=== PATIENT | female | born 1965 | race Caucasian/White ===

== ENCOUNTER 2019-11-04 10:13 | Inpatient (IN) | payer OTHER, SELFPAY ==
[2019-11-04] VITALS (8 sets, daily range): BP systolic 151–188; BP diastolic 72–114; PULSE 80–92; RESP 16–24; TEMP 36.6–37; O2SAT 92–97
--- NOTE | ~2019-11-04 | XR_ITS ---
XR abdomen NG/feed tube insert DATE: 11/04/2019 13:23 INDICATION: Nasogastric tube placement. Small bowel obstruction. TECHNIQUE: Portable supine AP view on 11/14/2019 at 1323 hours COMPARISON: None FINDINGS: A nasogastric tube is present in the upper body of the stomach. Surgical clips, right upper quadrant. Dilated gas distended small bowel. IMPRESSION: NG tube in stomach Reviewed, dictated and finalized at Location [facility]. Reviewed, dictated and finalized at location A. T OPERATIONS ASSISTANT IMPRESSION: NG tube in stomach
--- NOTE | ~2019-11-04 | CT_ITS ---
EXAMINATION: CT abdomen pelvis w con DATE: 11/04/2019 12:34 INDICATION: Abdominal pain, nausea, vomiting. TECHNIQUE: Computed tomography (CT) of the abdomen and pelvis was performed with 100 cc Omnipaque 350 intravenous contrast. Automated exposure control and iterative reconstruction technique were employe d. Exam dose: 1494.92 mGy-cm total exam DLP. COMPARISON: 06/21/2019 CT abdomen pelvis FINDINGS: The lung bases are clear. No pericardial or pleural effusion. Status post cholecystectomy. No hepatic or pancreatic space occupying mass lesion. Splenic calcifie d granulomas. No bile duct or pancreatic duct dilatation. No adrenal or renal space-occupying mass lesion. No urinary tract calculus or hydroureteronephrosis. Normal caliber of the abdominal aorta. No intraperitoneal or retroperitoneal or pelvic mass lesion or adenopathy or ascites. The urinary bladder, uterus and adnexal areas are unremarkable. There is dilated small bowel measuring up to 4.7 cm caliber, with air-fluid levels, with transition p oint near the neck of a ventral abdominal wall hernia. The distal small bowel is decompressed. There are numerous diverticula of the sigmoid and descending and transverse colon; no CT evidence of diverticulitis. Diffuse idiopathic skeletal hyperostosis of the thoracic and upper lumbar spine. Prominent degenerati ve change at the apophyseal joints of the lower lumbar and lumbosacral area. No suspicious osteolytic or osteoblastic lesions are noted. IMPRESSION: Small bowel obstruction near neck of the lower ventral abdominal wall hernia Diverticulosis of the colon Status post cholecystectomy Reviewed, dictated and finalized at [facility]. Reviewed, dictated and finalized at location A. DE UPHOLSTERER IMPRESSION: Small bowel obstruction near neck of the lower ventral abdominal w all hernia Diverticulosis of the colon Status post cholecystectomy
[2019-11-04 10:34] LABS: Basophils Percent Auto 0.2 % (0.2-1.2); Eosinophils Percent Auto 0.2 % (0-4.4); Hematocrit 51.4 % (37.0-47.0); Hemoglobin 16.3 g/dL (12.0-15.0); Immature Granulocyte Absolute 0.04 K/mm3 (0.00-0.031); Immature Granulocyte Percent A 0.3 % (0-0.5); Lymphocytes Absolute Auto 1.26 K/mm3 (0.9-3.2); Lymphocytes Percent Auto 10.2 % (18.3-44.2); Mean Corpuscular HGB Conc 31.7 g/dl (32-36); Mean Corpuscular Hemoglobin 27.3 pg (26-34); Mean Corpuscular Volume 86.2 fl (80-100); Mean Platelet Volume 10.1 fl (7.4-10.4); Monocytes Absolute Auto 0.9 K/mm3 (0.1-0.6); Neutrophils Absolute Auto 10.2 K/mm3 (1.3-6.7); Neutrophils Percent Auto 82.1 % (45.5-73.1); Platelet Count Result 329 k/mm3 (150-375); Red Blood Count 5.96 M/mm3 (4.2-5.4); Red Cell Distribution Width 14.6 % (11.5-14.5); White Blood Count 12.4 K/mm3 (4.5-10.0)
--- NOTE | 2019-11-04 10:34 | ED.ABDPAIN ---
HPI - Abdominal Pain General Chief Complaint: Abdominal Pain Stated Complaint: R/O SBO Time Seen by Provider: 11/04/19 10:34 Source: patient Mode of arrival: ambulatory Limitations: no limitations History of Present Illness HPI narrative: A 54 y/o female presents to the ED with c/o possible bowel obstruction and diffuse ABD pain. Pt states that on 11/02/19 she had a BM at 1230 and started to vomit after she at dinner. On 11/03/19 she started to have ABD pain, ABD bloating, and dry heaves. Pt notes that she has a PMHx of bowel obstruction, so she tried taking castor oil with no relief. She adds that her last BM was on 11/02/19 and this feels similar to her past bowel obstruction. Pt is belching, but passing little gas. She reports night sweats, but denies fever, chills, sore throat, rhinorrhea, and congestion. The ABD pain is rated a 7/10 in the ED. She has a PMHx of section, oophorectomy, diverticulosis, asthma, and bowel surgery. Her PCP is Dr. Ann and she is a former smoker. She socially drinks alcohol and takes Lasix PRN. MD elicited complaint: abdominal pain (Diffuse) and other (Possible bowel obstruction) Pertinent past history: other (Bowel obstruction, diverticulosis) Onset (ago): day(s) (2) Pain Consistency: constant Location: diffuse Pain scale (0-10): 7 Relieving factors: nothing Associated symptoms: nausea, vomiting and other (ABD bloating, dry heaves, night sweats) Treatments prior to arrival: other ([place] oil) Related Data Home Medications Medication Instructions Recorded Confirmed furosemide 20 mg PO PRN PRN 11/04/19 Allergies Allergy/AdvReac Type Severity Reaction Status Date / Time Penicillins Allergy Mild Itching Verified 08/05/17 09:34 amoxicillin Allergy Unknown Itching Verified 11/04/19 11:07 Review of Systems Review of Systems: All systems reviewed & are unremarkable except as noted in HPI and below Constitutional: Constitutional: Denies chills, Denies fever(s) and Reports night sweats ENT: Denies nasal congestion, Denies nasal discharge and Denies sore throat Gastrointestinal: Gastrointestinal: Reports abdominal pain (Diffuse), Reports bloating, Reports nausea, Reports vomiting and Reports other (Dry heaves) [facility] Past Medical History Medical History (Updated 11/04/19 @ 17:10 by Yvonne Rodriguez MD) Asthma Bowel obstruction Diverticulosis Surgical History Surgical History (Updated 11/04/19 @ 11:48 by Josefina Charlton) History of section History of intestinal surgery History of oophorectomy Family History Family History Grandparent Hypertension Family history of lung cancer Family history of coronary artery disease Diabetes mellitus Father Family history of lung cancer Other Family history of alcoholism Family history of arthritis Family history of cardiovascular disease Family history of malignant neoplasm Social History Social History (Updated 11/04/19 @ 11:45 by Josefina Charlton) Smoking status: Former smoker Tobacco type: cigarettes Smoking end date: 09/26/89 Alcohol intake: current Drinks per week: 2 Alcohol use details: Occasional Substance use: never Gender identity (if verbalized by the patient): Female Spiritual care concerns: No Agree to blood products: Yes Exam Const: General: cooperative, no acute distress and alert Nutritional Appearance: obese morbidly obese Orientation/consciousness: patient oriented x3 Limitations: no limitations HENMT: Mouth: Yes lip normal and Yes moist mucous membranes Resp: Effort & Inspection: normal respiratory effort Auscultation: clear to auscultation bilaterally Cardio: Rate: regular rate Rhythm: regular rhythm GI: Inspection: distended, Pannus present and scar GI Palp: Yes Soft to palpation, Yes Tenderness to palpation present (GI) (Diffuse), No Guarding due to palpation present (GI), Yes Hernia present (Multiple large ventr
[2019-11-04] MEDS: ONDANSETRON INJ 4 MG/2 ML VIAL IV PUSH ×2 (11:09→21:13)
[2019-11-04] MEDS: LACTATED RINGERS 1,000 ML 999 ML IV CONT (11:10)
[2019-11-04] MEDS: DICYCLOMINE HCL INJ 20 MG/2 ML VIAL IM (11:10)
[2019-11-04 11:36] LABS: Add Urine Microscopic? YES; Appearance Urine Cloudy (Clear); Bacteria Urine Trace /hpf; Bilirubin Urine Negative (Negative); Blood Urine 1+ (Negative); Color Urine Amber (Yellow); Glucose Urine UA Negative (Negative); Ketones Urine Trace mg/dL (Negative); Leukocyte Esterase Ur Negative LEU/UL (Negative); Mucus Urine Heavy /lpf; Nitrate Urine Negative (Negative); Protein Urine 2+ mg/dL (Negative); Squamous Epithelial Cell Urine Many /hpf (Few)
[2019-11-04 11:37] LABS: Specific Grav Ur 1.032 (1.001-1.035)
[2019-11-04 11:39] LABS: Alanine Aminotransferase 26 U/L (4-35); Albumin Level 4.3 g/dL (3.5-5.1); Alkaline Phosphatase 111 U/L (38-126); Aspartate Amino Transferase 35 U/L (14-36); Bilirubin,Total 0.8 mg/dL (0.2-1.3); Blood Urea Nitrogen 14 mg/dL (7-17); Calcium 9.5 mg/dL (8.4-10.2); Carbon Dioxide 28 mmol/L (22-30); Chloride 94 mmol/L (98-107); Estimated CRCL calculation 124 ml/min; Estimated Glomerular Filt Rate > 60; Glucose 143 mg/dL (65-105); Lipase 32 U/L (23-300); Potassium 4.2 mmol/L (3.4-5.0); Sodium 135 mmol/L (137-145)
[2019-11-04] MEDS: LACTATED RINGERS 1,000 ML 150 ML IV CONT (16:27)
[2019-11-04] MEDS: MORPHINE SULFATE 4 MG/ML INJ IV PUSH (16:27)
--- NOTE | 2019-11-04 16:35 | PC.NURSE ---
This patient, Mary Caldwell, was admitted to 3 [facility] Surg Room 319-01. Patient/family oriented to hospital policies and general routines including ID bracelet, bed and alarms, visiting hours, pain management, procedures, bathroom and other care routines, personal items, smoking policy, room service/diet, and visiting hours. Valuables list has been completed. Information on how to activate the Rapid Response Team has been discussed. Patient/Family are encouraged to report perceived risks to care and to ask questions if they do not understand what they are told or what they should do.
[2019-11-04] MEDS: FAMOTIDINE 20 MG/2 ML VIAL IV PUSH (21:02)
[2019-11-05] MEDS: hydrALAZINE HCL 20 MG/ML VIAL 10 MG IV PUSH ×2 (00:15→14:29)
[2019-11-05] MEDS: LACTATED RINGERS 1,000 ML 150 ML IV CONT ×4 (00:16→22:10)
[2019-11-05 03:26] VITALS: BP 165/89; PULSE 88
[2019-11-05 06:00] VITALS: BP 154/78; PULSE 92; RESP 20; TEMP 36.9; O2SAT 93
[2019-11-05] MEDS: ONDANSETRON INJ 4 MG/2 ML VIAL IV PUSH (08:15)
--- NOTE | 2019-11-05 09:15 | PM.IMHP ---
H&P: HPI History of Present Illness Chief complaint: SBO Narrative: Mary Caldwell is a morbidly obese 54 year old female with a history of multiple abdominal surgeries, including 3 incisional hernia repairs in the past, and also with a history of bowel obstructions in the past. She initially started having symptoms 3 days ago after eating pizza. She reports having an episode of vomiting following her meal, but attributed this to the ?stomach flu.? The vomiting persisted into Tuesday, but her abdominal pain began to worsen. She states that the pain was a generalized abdominal pain radiating across the entire abdomen. The pain continued to worsen into yesterday and she realized she had not had a bowel movement since 3 days ago, therefore she was concerned and decided to present to the ED for further evaluation. CT scan of the abdomen and pelvis showed a small bowel obstruction near the neck of the lower ventral abdominal wall hernia. Labs revealed a white blood cell count of 12,400 otherwise unremarkable labs. Our service was contacted for the small-bowel obstruction and the patient was admitted to our service for treatment and surgical evaluation. The patient is now being seen on the medical floor. She reports that her pain has improved since the NG tube has been placed and is now localizing towards the mid left abdomen, pointing at the hernia. She states that her nausea has been persistent even with the NG tube. Reports passing gas today but still no bowel movement since 3 days ago. No other complaints at this time. She was last seen in the hospital in May of 2019 for the same issue with a small-bowel obstruction due to the ventral incisional hernia that resolved with conservative management and NG tube decompression. She was discharged home and instructed to work on weight loss prior to proceeding with a recurrence ventral incisional hernia repair. The patient reports having a lot of stress at home without any weight loss since discharge in May. Review of Systems Constitutional: Constitutional: Reports as per HPI, Denies chills, Denies excessive sweating, Denies fatigue, Denies fever(s), Denies headache(s) and Denies weakness Eyes: Eyes: Denies change in vision and Denies loss of vision ENT: Reports Normal hearing present, Denies dizziness and Denies headache(s) Cardiovascular: Cardiovascular: Denies chest pain, Denies syncope, Denies leg edema, Denies lightheadedness, Denies radiating jaw, neck or arm pain and Denies dyspnea Respiratory: Respiratory: Denies cough, Denies dyspnea and Denies wheezing Gastrointestinal: Gastrointestinal: Reports as per HPI, Reports abdominal pain (generalized), Reports bloating, Denies coffee ground emesis, Reports constipation, Denies diarrhea, Reports nausea, Reports vomiting and Reports other (History of multiple abdominal surgeries) Musculoskeletal: Musculoskeletal: Denies deformity, Denies joint swelling, Denies radiating pain into limb and Denies tingling Integumentary/Breasts: Skin/Breast: Denies pruritus, Denies wounds and Denies jaundice Neurologic: Reports Normal hearing present, Denies confusion, Denies dizziness, Denies syncope, Denies headache(s), Denies loss of vision, Denies tingling and Denies tremor(s) Psychiatric: Psychiatric: Denies anxiety and Denies depression Endocrine: Endocrine: Denies cold intolerance, Denies excessive sweating and Denies heat intolerance PMFSH Past Medical History Medical History Asthma Bowel obstruction Diverticulosis With a history of diverticulitis and colon resection. Surgical History Surgical History History of appendectomy Open appendectomy during her first . History of arthroscopy of left knee History of section x 2 History of colon resection Sigmoidectomy for diverticulitis with left oophorectomy in 2007.
[2019-11-05] MEDS: FAMOTIDINE 20 MG/2 ML VIAL IV PUSH ×2 (12:19→20:30)
[2019-11-05 14:00] VITALS: BP 189/120; PULSE 98; RESP 16; TEMP 36.7; O2SAT 96
[2019-11-05] MEDS: MORPHINE SULFATE 4 MG/ML INJ IV PUSH (14:49)
[2019-11-05 16:49] VITALS: BMI 50.5
[2019-11-05 22:00] VITALS: BP 146/79; PULSE 100; RESP 18; TEMP 37.8; O2SAT 93
[2019-11-05 22:25] VITALS: TEMP 37.2
[2019-11-06 06:00] VITALS: BP 136/71; PULSE 91; RESP 20; TEMP 37; O2SAT 96
[2019-11-06 06:34] LABS: Hematocrit 45.9 % (37.0-47.0); Hemoglobin 14.4 g/dL (12.0-15.0); Mean Corpuscular HGB Conc 31.4 g/dl (32-36); Mean Corpuscular Hemoglobin 27.7 pg (26-34); Mean Corpuscular Volume 88.3 fl (80-100); Mean Platelet Volume 10.3 fl (7.4-10.4); Platelet Count Result 255 k/mm3 (150-375); White Blood Count 12.2 K/mm3 (4.5-10.0)
[2019-11-06 06:48] LABS: Blood Urea Nitrogen 17 mg/dL (7-17); Calcium 8.5 mg/dL (8.4-10.2); Carbon Dioxide 32 mmol/L (22-30); Chloride 92 mmol/L (98-107); Estimated CRCL calculation 105 ml/min; Estimated Glomerular Filt Rate > 60; Glucose 111 mg/dL (65-105); Potassium 3.7 mmol/L (3.4-5.0); Sodium 136 mmol/L (137-145)
--- NOTE | 2019-11-06 08:48 | PM.PNGS ---
Progress Note: A&P Assessment and Plan (1) SBO (small bowel obstruction): Code(s): K56.609 - Unspecified intestinal obstruction, unspecified as to partial versus complete obstruction Status: Resolved Assessment and Plan: Remove NG and start clear liquids Bowel obstruction likely caused by hernia and adhesions, but she is too high of a surgical risk at this time. She needs to work on weight loss. Once BMI is below 45, could consider surgical options further (2) Recurrent ventral incisional hernia: Code(s): K43.2 - Incisional hernia without obstruction or gangrene Status: Chronic (3) Morbid obesity with BMI of 50.0-59.9, adult: Code(s): E66.01 - Morbid (severe) obesity due to excess calories; Z68.43 - Body mass index (BMI) 50.0-59.9, adult Status: Chronic Subjective Subjective Date/Time Seen: 11/06/19 08:48 Multiple BM's. No abdominal pain. Exam GI: GI Palp: No Tenderness to palpation present (GI), No Guarding due to palpation present (GI) and Yes Hernia present (large recurrent hernia, soft bowel palpable within hernia) Objective Data Vital Signs Vital Signs: Vital Signs - 24 hr 11/05/19 14:00 11/05/19 22:00 11/05/19 22:25 Temperature 36.7 C 37.8 C H 37.2 C Pulse Rate 98 100 Respiratory Rate 16 18 Blood Pressure 189/120 H 146/79 H Pulse Oximetry 96 93 11/06/19 06:00 Temperature 37.0 C Pulse Rate 91 Respiratory Rate 20 Blood Pressure 136/71 Pulse Oximetry 96 Intake/Output Intake/Output: Intake & Output 11/03/19 11/04/19 11/05/19 11/06/19 23:59 23:59 23:59 23:59 Intake Total 2200 3200 1000 Output Total 1550 2250 950 Balance 650 950 50 Meds/Results Medications: Active Medications Generic Name Dose Route Start Last Admin Trade Name Freq PRN Reason Stop Dose Admin Dicyclomine HCl 20 mg 11/04/19 14:01 Bentyl Inj IM Q6H PRN Abdominal Cramping Famotidine 20 mg 11/04/19 21:00 11/05/19 20:30 Pepcid Iv IV PUSH 20 mg Q12HR KRYSTAL Administration Hydralazine HCl 10 mg 11/04/19 23:29 11/05/19 14:29 Apresoline Hcl Inj IV PUSH 10 mg Q8H PRN Administration Blood Pressure - High Lactated Ringer's 1,000 mls @ 150 mls/hr 11/04/19 14:05 11/06/19 05:52 Lr - Lactated Ringers Iv IV CONT 150 mls/hr .Q6H40M KRYSTAL Infusion Acetaminophen 1,000 mg in 100 mls @ 400 mls/hr 11/05/19 15:02 11/05/19 22:25 Ofirmev 1,000 Mg Ivpb IVPB 11/06/19 15:03 Infused Q6H PRN Infusion Pain Rated 4-6 Morphine Sulfate 4 mg 11/05/19 15:03 Morphine Sulfate Inj IV PUSH Q2H PRN Pain Rated 7-10 Ondansetron HCl 4 mg 11/04/19 14:01 11/05/19 08:15 Zofran Inj IV PUSH 4 mg Q4H PRN Administration Nausea Radiology Results: ITS Impressions Abdomen/Pelvis CT 11/04/19 12:39 IMPRESSION: Small bowel obstruction near neck of the lower ventral abdominal wall hernia Diverticulosis of the colon Status post cholecystectomy Abdomen X-Ray 11/04/19 13:46 IMPRESSION: NG tube in stomach Labs Labs: Laboratory Results - last 24 hr 11/06/19 11/06/19 06:12 06:12 WBC 12.2 H RBC 5.20 Hgb 14.4 Hct 45.9 MCV 88.3 MCH 27.7 MCHC 31.4 L RDW 15.0 H Plt Count 255 MPV 10.3 Sodium 136 L Potassium 3.7 Chloride 92 L Carbon Dioxide 32 H BUN 17 Creatinine 0.70 Estim Creat Clear Calc 105 Estimated GFR > 60 Glucose 111 H Calcium 8.5 Quality VTE Prophylaxis VTE prophylaxis: mechanical ordered
[2019-11-06 14:00] VITALS: BP 139/73; PULSE 83; RESP 16; TEMP 37.6; O2SAT 96
[2019-11-06] MEDS: FAMOTIDINE 20 MG/2 ML VIAL IV PUSH (21:05)
[2019-11-06] MEDS: LACTATED RINGERS 1,000 ML 75 ML IV CONT (21:05)
[2019-11-06 22:00] VITALS: BP 130/68; PULSE 75; RESP 18; TEMP 36.9; O2SAT 97
[2019-11-07 06:00] VITALS: BP 125/68; PULSE 85; RESP 18; TEMP 36.4; O2SAT 98
[2019-11-07 06:31] LABS: Hematocrit 43.8 % (37.0-47.0); Hemoglobin 13.3 g/dL (12.0-15.0); Mean Corpuscular HGB Conc 30.4 g/dl (32-36); Mean Corpuscular Hemoglobin 27.7 pg (26-34); Mean Corpuscular Volume 91.3 fl (80-100); Mean Platelet Volume 10.8 fl (7.4-10.4); Platelet Count Result 231 k/mm3 (150-375); White Blood Count 10.2 K/mm3 (4.5-10.0)
[2019-11-07 06:47] LABS: Blood Urea Nitrogen 12 mg/dL (7-17); Calcium 8.5 mg/dL (8.4-10.2); Carbon Dioxide 32 mmol/L (22-30); Chloride 93 mmol/L (98-107); Estimated CRCL calculation 121 ml/min; Estimated Glomerular Filt Rate > 60; Glucose 102 mg/dL (65-105); Potassium 3.1 mmol/L (3.4-5.0); Sodium 137 mmol/L (137-145)
[2019-11-07] MEDS: polyethylene glycoL 3350 17 GM POWD.PACK PO (09:03)
[2019-11-07] MEDS: FAMOTIDINE 20 MG/2 ML VIAL IV PUSH (09:03)
[2019-11-07] MEDS: POTASSIUM CHLORIDE 20 MEQ TABLET 40 MEQ PO (09:06)
--- NOTE | 2019-11-07 10:11 | PM.PNGS ---
Progress Note: A&P Assessment and Plan (1) SBO (small bowel obstruction): Code(s): K56.609 - Unspecified intestinal obstruction, unspecified as to partial versus complete obstruction Status: Resolved Assessment and Plan: Patient continues to improve. Will advance to full liquids and advance diet as tolerated Bowel obstruction likely caused by hernia and adhesions, but she is too high of a surgical risk at this time. She needs to work on weight loss. Discussed again today with the patient and also seeing a Dietitian for help with this. Once BMI is below 45, could consider surgical options further (2) Recurrent ventral incisional hernia: Code(s): K43.2 - Incisional hernia without obstruction or gangrene Status: Chronic (3) Morbid obesity with BMI of 50.0-59.9, adult: Code(s): E66.01 - Morbid (severe) obesity due to excess calories; Z68.43 - Body mass index (BMI) 50.0-59.9, adult Status: Chronic Subjective Subjective Date/Time Seen: 11/07/19 08:32 Patient reports: no new complaints, feels better, pain is less, tolerating liquids well, flatus and bowel movement Interval history: Patient seen and examined. Reports feeling better today. Denies nausea, vomiting, or bloating. Tolerating clear liquids. Bowels have moved multiple times yesterday and already twice this morning. Denies abdominal pain. No other complaints at this time. Review of Systems Review of Systems: All systems reviewed & are unremarkable except as noted in HPI and below Exam Const: General: comfortable, no acute distress, alert and awake Nutritional Appearance: obese morbidly obese GI: Inspection: obesity GI Palp: Yes Soft to palpation and No Tenderness to palpation present (GI) Auscultation: Hypoactive bowel sounds present Rectal Exam: deferred Other: Large recurrent ventral hernia with soft palpable bowel but unable to appreciate if able to fully reduce the hernia due to the patient's body habitus and size of the hernia. Extrem: General: normal to inspection Psych: Appearance: grossly normal Mental Status: mental status grossly normal Attitude: cooperative Objective Data Vital Signs Vital Signs: Vital Signs - 24 hr 11/06/19 14:00 11/06/19 22:00 11/07/19 06:00 Temperature 37.6 C H 36.9 C 36.4 C Pulse Rate 83 75 85 Respiratory Rate 16 18 18 Blood Pressure 139/73 130/68 125/68 Pulse Oximetry 96 97 98 Intake/Output Intake/Output: Intake & Output 11/04/19 11/05/19 11/06/19 11/07/19 23:59 23:59 23:59 23:59 Intake Total 2200 3200 2680 444 Output Total 1550 2250 1750 550 Balance 650 950 930 -106 Meds/Results Medications: Active Medications Generic Name Dose Route Start Last Admin Trade Name Freq PRN Reason Stop Dose Admin Dicyclomine HCl 20 mg 11/04/19 14:01 Bentyl Inj IM Q6H PRN Abdominal Cramping Famotidine 20 mg 11/04/19 21:00 11/07/19 09:03 Pepcid Iv IV PUSH 20 mg Q12HR KRYSTAL Administration Hydralazine HCl 10 mg 11/04/19 23:29 11/05/19 14:29 Apresoline Hcl Inj IV PUSH 10 mg Q8H PRN Administration Blood Pressure - High Lactated Ringer's 1,000 mls @ 75 mls/hr 11/04/19 14:05 11/07/19 06:37 Lr - Lactated Ringers Iv IV CONT 75 mls/hr .[id number] KRYSTAL Infusion Morphine Sulfate 4 mg 11/05/19 15:03 Morphine Sulfate Inj IV PUSH Q2H PRN Pain Rated 7-10 Ondansetron HCl 4 mg 11/04/19 14:01 11/05/19 08:15 Zofran Inj IV PUSH 4 mg Q4H PRN Administration Nausea Polyethylene Glycol 17 gm 11/07/19 09:00 11/07/19 09:03 Miralax PO 17 gm QAM KRYSTAL Administration Radiology Results: ITS Impressions Abdomen/Pelvis CT 11/04/19 12:39 IMPRESSION: Small bowel obstruction near neck of the lower ventral abdominal wall hernia Diverticulosis of the colon Status post cholecystectomy Abdomen X-Ray 11/04/19 13:46 IMPRESSION: NG tube in stomach Labs Labs: Laboratory Results - last
--- NOTE | 2019-11-07 15:57 | PM.DS ---
DS: Diagnosis Admitting Diagnosis Admitting Diagnosis: Unspecified intestinal obstruction, unspecified as to partial versus complete obstruction Discharge Diagnosis (1) SBO (small bowel obstruction): Code(s): K56.609 - Unspecified intestinal obstruction, unspecified as to partial versus complete obstruction Status: Resolved (2) Recurrent ventral incisional hernia: Code(s): K43.2 - Incisional hernia without obstruction or gangrene Status: Chronic (3) Morbid obesity with BMI of 50.0-59.9, adult: Code(s): E66.01 - Morbid (severe) obesity due to excess calories; Z68.43 - Body mass index (BMI) 50.0-59.9, adult Status: Chronic DS: Summary Hospital Course Reason for hospitalization: Mary Caldwell is a morbidly obese 54 year old female with a history of multiple abdominal surgeries, including 3 incisional hernia repairs in the past, and also with a history of bowel obstructions in the past. She had been having symptoms for 3 days of abdominal pain, nausea, and vomiting. She presented to the emergency department for evaluation. CT scan of the abdomen and pelvis showed a small bowel obstruction near the neck of the lower ventral abdominal wall hernia. Labs revealed a white blood cell count of 12,400 otherwise unremarkable labs. Our service was contacted for the small-bowel obstruction and the patient was admitted to our service for treatment and surgical evaluation. Hospital Course: The patient was seen and evaluated. The small bowel obstruction was treated conservatively with NG tube decompression, bowel rest, IV fluids, analgesics, and antiemetics. With time, the bowel obstruction resolved and her bowel function returned. She does have a large recurrent ventral hernia containing small bowel. Her BMI is over 50 and she has been instructed in the past to work on weight loss prior to having an elective hernia repair. She has not made progress with the weight loss. Fortunately, this resolved with conservative measures again this time but we discussed the possibility of this being a more emergent situation with an incarcerated or strangulated hernia. She understands and states she will work on weight loss and get a dietitian referral from her PCP. Once bowel function returned and she clinically improved, her NG tube was removed and she was slowly advanced on a diet. Today, she has had a full liquid diet and is tolerating this well. I have seen her now for the second time today. She states her bowels are still moving and she has no abdominal complaints. When she initially arrived to the ED, her BP was high but this improved after her pain was controlled and subsided. This was likely due to pain but she was instructed to follow-up with her PCP and will have a blood pressure recheck then. I advanced her to a soft diet for dinner and if she tolerates this without any complaints, then she can be discharged this evening. I discussed this with the patient and the nurse taking care of her. I also instructed the patient to continue the Miralax daily at home to help keep her bowels moving regularly. Status at Discharge Functional status at discharge: independent ambulation Overall status at discharge: patient is back to baseline Time Spent with Patient Time attestation: Total time spent providing and/or coordinating discharge services: Time spent: Greater than 30 minutes DS: Data Data Completed and Pending Labs on day of discharge: Labs from last 24 hours 11/07/19 11/07/19 06:06 06:06 WBC 10.2 H RBC 4.80 Hgb 13.3 Hct 43.8 MCV 91.3 MCH 27.7 MCHC 30.4 L RDW 15.0 H Plt Count 231 MPV 10.8 H Sodium 137 Potassium 3.1 L Chloride 93 L Carbon Dioxide 32 H BUN 12 D Creatinine 0.60 L Estim Creat Clear Calc 121 Estimated GFR > 60 Glucose 102 Calcium 8.5 Discharge Plan Discharge Attending physician on discharge: Gomez Nelson Consulting providers: Roman Hernandez
== END 2019-11-07 18:45 | disposition home or self-care (01) | DRG 394 ==
LOC: ANHED 14:06 → ANH3MEDSUR 14:20
PROVIDERS: Admitting Provider Surgery; Emergency Provider Emergency Medicine; PCP Family Medicine; Visit Provider Surgery
DX: K43.0 Incisional hernia with obstruction, without gangrene (principal); Z68.43 Body mass index [BMI] 50.0-59.9, adult; E66.01 Morbid (severe) obesity due to excess calories; J45.909 Unspecified asthma, uncomplicated; K57.90 Diverticulosis of intestine, part unspecified, without perforation or abscess without bleeding; R03.0 Elevated blood-pressure reading, without diagnosis of hypertension; Z87.891 Personal history of nicotine dependence; Z90.49 Acquired absence of other specified parts of digestive tract
CPT/HCPCS: 36415; 74177; 80048; 80053; 81001; 83690; 85025; 85027; 87077; 87086; 87088; 87186; 96365; 96372; 96375; 99285; A9270; J0131; J0360; J0500; J2270; J2405; J7120; Q9967

== ENCOUNTER 2020-10-10 08:57 | Outpatient (CLI) | payer OTHER, SELFPAY ==
--- NOTE | ~2020-10-10 | XR_ITS ---
EXAMINATION: XR chest 2V DATE: 10/10/2020 09:11 INDICATION: Cough and shortness of breath TECHNIQUE: Frontal and lateral views of the chest are obtained COMPARISON: 01/09/2007 FINDINGS: There are patchy opacities throughout all lung zones. There is no pleural effusion or pneum othorax. The cardiomediastinal silhouette is normal. There is moderate thoracic spondylosis. Thoracic dextrocurvature is noted. IMPRESSION: 1. Patchy bilateral opacities, likely pneumonia. Reviewed, dictated and finalized at location A. LFURIZER TENDER
[2020-10-10 09:27] LABS: Basophils Absolute Auto 0.1 K/mm3 (0.0-0.1); Basophils Percent Auto 0.6 % (0.2-1.2); Eosinophils Absolute Auto 0.2 K/mm3 (0-0.3); Eosinophils Percent Auto 1.5 % (0-4.4); Hematocrit 45.1 % (37.0-47.0); Immature Granulocyte Absolute 0.14 K/mm3 (0.00-0.031); Immature Granulocyte Percent A 1.3 % (0-0.5); Lymphocytes Percent Auto 25.8 % (18.3-44.2); Mean Corpuscular Hemoglobin 27.1 pg (26-34); Mean Corpuscular Volume 87.2 fl (80-100); Mean Platelet Volume 8.9 fl (7.4-10.4); Monocytes Absolute Auto 0.9 K/mm3 (0.1-0.6); Monocytes Percent Auto 8.2 % (2.6-8.5); Neutrophils Absolute Auto 6.8 K/mm3 (1.3-6.7); Neutrophils Percent Auto 62.6 % (45.5-73.1); Platelet Count Result 487 k/mm3 (150-375); Red Blood Count 5.17 M/mm3 (4.2-5.4); Red Cell Distribution Width 16.2 % (11.5-14.5); White Blood Count 10.9 K/mm3 (4.5-10.0)
--- NOTE | 2020-10-10 09:30 | ECG_ITS ---
Measurements Intervals [place] Rate: 89 P: 75 [place]: 167 QRS: 48 QRSD: 88 T: 62 QT: 356 QTc: 435 Interpretive Statements SINUS RHYTHM POSSIBLE LEFT ATRIAL ENLARGEMENT BORDERLINE R WAVE PROGRESSION, ANTERIOR LEADS BASELINE ARTIFACT- I, II, III BORDERLINE ECG Electronically Signed On 10-10-2020 9:55:32 MITER CUTTER by Silverio Mcbride D.O.
[2020-10-10 09:38] LABS: Anion Gap 5 mmol/L (8-16); Blood Urea Nitrogen 14 mg/dL (7-17); Carbon Dioxide 30 mmol/L (22-30); Chloride 101 mmol/L (98-107); Estimated Glomerular Filt Rate > 60; Glucose 110 mg/dL (65-105); Potassium 4.5 mmol/L (3.4-5.0); Sodium 136 mmol/L (137-145)
[2020-10-10 09:47] LABS: NT Pro B Type Natriuretic Pept 138 PG/ML (5-100)
== END 2020-10-10 08:58 | disposition home or self-care (01) ==
LOC: ANHIMG 09:01
PROVIDERS: PCP Family Medicine; Visit Provider Nurse Practitioner Family
DX: R06.02 Shortness of breath (principal); R60.0 Localized edema; R05 Cough; R94.31 Abnormal electrocardiogram [ECG] [EKG]; R91.8 Other nonspecific abnormal finding of lung field
CPT/HCPCS: 36415; 71046; 80048; 83880; 85025; 93005

== ENCOUNTER 2022-03-04 06:40 | Outpatient (CLI) | payer OTHER, SELFPAY ==
--- NOTE | ~2022-03-04 | XR_ITS ---
XR chest 2V 03/04/2022 07:04 Indication: Cough. Long-term Covid effects. Shortness of breath. Procedure: PA and lateral views of the chest Comparison: Comparison to multiple prior studies sequentially, with oldest reviewed study dated 02/2007. Findings: Cardiomegaly with pulmonary vascular congestion. No focal pneumonia, overt edema, pleural e ffusion or pneumothorax. No acute osseous abnormality. There is diffuse idiopathic skeletal hyperosto sis (DISH) of the thoracic spine. There is dextroscoliosis of the thoracic spine. Impression: 1: No acute cardiopulmonary disease. Reviewed, dictated and finalized at location B. Impression: 1: No acute cardiopulmonary disease.
[2022-03-04 08:15] LABS: Anion Gap 7 mmol/L (8-16); Blood Urea Nitrogen 13 mg/dL (7-17); Calcium 8.8 mg/dL (8.4-10.2); Carbon Dioxide 27 mmol/L (22-30); Chloride 105 mmol/L (98-107); Estimated Glomerular Filt Rate > 60; Glucose 116 mg/dL (65-110); Potassium 4.6 mmol/L (3.4-5.0); Sodium 139 mmol/L (137-145)
== END 2022-03-04 06:41 | disposition home or self-care (01) ==
PROVIDERS: PCP Family Medicine; Visit Provider Family Medicine
DX: R05.9 Cough, unspecified (principal)
CPT/HCPCS: 36415; 71046; 80048

== ENCOUNTER 2022-03-26 08:22 | Outpatient (CLI) | payer OTHER, SELFPAY ==
--- NOTE | 2022-03-26 08:58 | ECHO_ITS ---
Patient Info Name: Mary Caldwell Age: 57 years : 1965 Gender: Female Ht: 62 in Wt: 315 lbs BSA: 2.60 m2 HR: 85 bpm BP: 149 / 93 mmHg Technical Quality: Fair Exam Date: 03/26/2022 9:12 AM Exam Location: [facility] Pulmonary Patient Status: Outpatient Admit Date: 03/26/2022 Staff Ordering Physician: Thomas Ann MD Inspector Fabric: Margaret Beebe RDCS Attending Provider: Thomas Ann MD Referring Physician: Marissa PERKINS; Exam Type: CA echo doppler color flow Study Info Indications R05 - Cough Complete two-dimensional, color flow and Doppler transthoracic echocardiogram is performed. Summary 1. Complete two-dimensional, color flow and Doppler transthoracic echocardiogram is performed. 2. Technically suboptimal study due to poor sonographic images. 3. Left ventricular chamber dimension is normal. 4. Left ventricular systolic function is normal, estimated at 55-60%. 5. There is moderately increased left ventricular wall thickness. 6. The left ventricular diastolic function is grade II diastolic dysfunction. 7. E/e' 11 is mildly elevated. Left Ventricle E/e' 11 is mildly elevated. Technically suboptimal study due to poor sonographic images. Left ventricular chamber dimension is normal. Left ventricular systolic function is normal, estimated at 55-60%. There is moderately increased left ventricular wall thickness. The left ventricular diastolic function is grade II diastolic dysfunction. Right Ventricle Right ventricular chamber dimension is normal. Right ventricular systolic function is normal. Left Atria Left atrial chamber dimension is normal. Right Atria Right atrial chamber dimension is normal. Aortic Valve The aortic valve is probable trileaflet. There is no aortic valve stenosis. There is no aortic valve regurgitation. Pulmonic Valve There is no pulmonic regurgitation. Mitral Valve There is no mitral valve stenosis. There is no mitral valve regurgitation. Tricuspid Valve There is no tricuspid valve regurgitation. Pericardium/Pleural There is no pericardial effusion. Inferior Vena Cava Normal inferior vena cava with >50% collapse upon inspiration consistent with normal right atrial pressure, 5 mmHg. Aorta The aortic root size at the sinus of Valsalva is normal. Left Ventricular Outflow Tract Name Value Normal LVOT 2D LVOT Diameter 1.9 cm LVOT Doppler LVOT Peak Gradient 5 mmHg LVOT Mean Gradient 3 mmHg LVOT VTI 23 cm LVOT VTI/AV VTI Ratio 1.0 LVOT Stroke Volume 65 ml LVOT CO 5.1 l/min LVOT CI 2.0 l/min/m2 Pulmonic Valve Name Value Normal RVOT Doppler RVOT Peak Gradient
== END 2022-03-26 08:23 | disposition home or self-care (01) ==
LOC: ANHCARD 08:23
PROVIDERS: PCP Family Medicine; Visit Provider Family Medicine
DX: U07.1 COVID-19 (principal); J12.82 Pneumonia due to coronavirus disease 2019; R06.02 Shortness of breath; R60.0 Localized edema; R05.9 Cough, unspecified
CPT/HCPCS: 93306

== ENCOUNTER 2023-04-04 07:24 | Outpatient (CLI) | payer OTHER, SELFPAY ==
[2023-04-04 07:48] LABS: Basophils Absolute Auto 0.1 K/mm3 (0.0-0.1); Basophils Percent Auto 0.6 % (0.2-1.2); Eosinophils Absolute Auto 0.2 K/mm3 (0-0.3); Eosinophils Percent Auto 3.1 % (0-4.4); Hematocrit 46.5 % (37.0-47.0); Hemoglobin 14.4 g/dL (12.0-15.0); Immature Granulocyte Absolute 0.03 K/mm3 (0.00-0.031); Immature Granulocyte Percent A 0.4 % (0-0.5); Lymphocytes Absolute Auto 1.67 K/mm3 (0.9-3.2); Lymphocytes Percent Auto 21.3 % (18.3-44.2); Mean Corpuscular Hemoglobin 28.4 pg (26-34); Mean Corpuscular Volume 91.7 fl (80-100); Mean Platelet Volume 10.4 fl (7.4-10.4); Monocytes Absolute Auto 0.5 K/mm3 (0.1-0.6); Monocytes Percent Auto 6.9 % (2.6-8.5); Neutrophils Absolute Auto 5.3 K/mm3 (1.3-6.7); Neutrophils Percent Auto 67.7 % (45.5-73.1); Platelet Count Result 241 k/mm3 (150-375); Red Blood Count 5.07 M/mm3 (4.2-5.4); Red Cell Distribution Width 15.6 % (11.5-14.5); White Blood Count 7.8 K/mm3 (4.5-10.0)
[2023-04-04 07:58] LABS: Anion Gap 4 mmol/L (8-16); Blood Urea Nitrogen 15 mg/dL (7-17); Carbon Dioxide 31 mmol/L (22-30); Chloride 102 mmol/L (98-107); Estimated Glomerular Filt Rate > 60; Potassium 4.8 mmol/L (3.4-5.0); Sodium 137 mmol/L (137-145)
[2023-04-04 07:59] LABS: Calcium 8.8 mg/dL (8.4-10.2); Cholesterol 182 mg/dL (0-200); Glucose 116 mg/dL (65-110); HDL Direct 50 mg/dL; Triglycerides 147 mg/dL (<150)
[2023-04-04 08:07] LABS: NT Pro B Type Natriuretic Pept 125 pg/mL (19.9-100)
[2023-04-04 08:09] LABS: LDL Cholesterol Direct 88 mg/dL
[2023-04-04 08:29] LABS: Hemoglobin A1C 5.6 % (<5.7)
== END 2023-04-04 07:25 | disposition home or self-care (01) ==
PROVIDERS: PCP Family Medicine; Visit Provider Family Medicine
DX: I51.89 Other ill-defined heart diseases (principal); I50.9 Heart failure, unspecified; Z13.220 Encounter for screening for lipoid disorders; R73.09 Other abnormal glucose
CPT/HCPCS: 36415; 80048; 80061; 83036; 83880; 84443; 85025

== ENCOUNTER 2023-11-16 07:02 | Outpatient (CLI) | payer OTHER, SELFPAY ==
--- NOTE | ~2023-11-16 | XR_ITS ---
Clinical Indication: Cough PA and lateral views of the chest: Comparison: 03/04/2022 Findings: The lungs are clear, without evidence of focal consolidation or pleural effusion. Cardiome diastinal silhouette is stable. Bones and soft tissues are unremarkable. Impression: Clear lungs. Reviewed, dictated and finalized at [facility]. TIZER PACKER Impression: Clear lungs.
== END 2023-11-16 07:03 | disposition home or self-care (01) ==
PROVIDERS: PCP Family Medicine; Visit Provider Nurse Practitioner Family
DX: R05.9 Cough, unspecified (principal); R06.02 Shortness of breath
CPT/HCPCS: 71046

== ENCOUNTER 2024-05-21 09:15 | Outpatient (CLI) | payer OTHER, SELFPAY ==
--- NOTE | ~2024-05-21 | CT_ITS ---
CT of the Abdomen and Pelvis: Indication: Ventral hernia Technique: 2.5 mm axial scans were obtained through the abdomen and pelvis following intravenous adm inistration of 100 cc of Omnipaque 350. Dose reduction technique was used on this scan by utilizing a utomated exposure control and iterative reconstruction technique. The dose-length product (DLP) was 3 028.29 mGy-cm. COMPARISON: 11/04/2019 Findings: Scans through the lung bases are unremarkable. The liver, spleen, pancreas, left adrenal gland, and kidneys are within normal limits. Cholecystectom y clips are present. Stable small right adrenal nodule. No evidence of aortic aneurysm. No lymphade nopathy. No bowel obstruction or bowel wall thickening. There is an extremely large complex ventral hernia con taining multiple small bowel loops as well as large portion of the transverse colon.. Images through the pelvis were performed. Urinary bladder unremarkable. No adnexal mass seen. No asci anne. Impression: Extremely large complex ventral hernia containing multiple small bowel loops, transverse colon, and l arge amount of mesenteric fat. Reviewed, dictated and finalized at [facility]. Impression: Extremely large complex ventral hernia containing multiple small bowel loops, t ransverse colon, and large amount of mesenteric fat.
== END 2024-05-21 09:16 | disposition home or self-care (01) ==
PROVIDERS: PCP Family Medicine
DX: K43.6 Other and unspecified ventral hernia with obstruction, without gangrene (principal)
CPT/HCPCS: 74177; Q9967

== ENCOUNTER 2024-05-30 06:27 | Emergency (ER) | payer OTHER, SELFPAY ==
[2024-05-30] VITALS (11 sets, daily range): BP systolic 112–166; BP diastolic 80–96; PULSE 62–73; RESP 13–22; TEMP 36.7; O2SAT 92–100
--- NOTE | ~2024-05-30 | XR_ITS ---
Portable chest x-ray Comparison: 11/16/2023 Clinical History: Shortness of breath Findings: There are mild central congestive changes. Cardiomediastinal silhouette is stable. Bones and soft tissues are unremarkable. Impression: Mild central congestive changes. Stable cardiomegaly. Reviewed, dictated and finalized at [facility] [place]. Impression: Mild central congestive changes. Stable cardiomegaly.
--- NOTE | 2024-05-30 06:41 | ECG_ITS ---
Test Date: 2024-05-30 06:43:59 Measurements Intervals [place] Rate: 75 P: 75 CT: 170 QRS: 46 QRSD: 91 T: 57 QT: 398 QTc: 445 Interpretive Statements SINUS RHYTHM WITH OCCASIONAL SUPRAVENTRICULAR PREMATURE COMPLEXES DELAYED PRECORDIAL R/S TRANSITION BASELINE ARTIFACT- I, II, III, AVR, AVL, AVF BORDERLINE ECG No previous ECG available for comparison Electronically Signed On 05-30-2024 08:26:30 CDT by Silverio Mcbride D.O.
[2024-05-30 07:11] LABS: Basophils Absolute Auto 0.1 K/mm3 (0.0-0.1); Basophils Percent Auto 0.7 % (0.2-1.2); Eosinophils Absolute Auto 0.2 K/mm3 (0-0.3); Eosinophils Percent Auto 3.2 % (0-4.4); Hemoglobin 13.7 g/dL (12.0-15.0); Immature Granulocyte Absolute 0.04 K/mm3 (0.00-0.031); Immature Granulocyte Percent A 0.5 % (0-0.5); Lymphocytes Absolute Auto 1.38 K/mm3 (0.9-3.2); Lymphocytes Percent Auto 18.5 % (18.3-44.2); Mean Corpuscular HGB Conc 31.1 g/dl (32-36); Mean Corpuscular Hemoglobin 29.1 pg (26-34); Mean Corpuscular Volume 93.4 fl (80-100); Mean Platelet Volume 10.2 fl (7.4-10.4); Monocytes Absolute Auto 0.5 K/mm3 (0.1-0.6); Monocytes Percent Auto 6.4 % (2.6-8.5); Neutrophils Absolute Auto 5.3 K/mm3 (1.3-6.7); Neutrophils Percent Auto 70.7 % (45.5-73.1); Platelet Count Result 234 k/mm3 (150-375); Red Blood Count 4.71 M/mm3 (4.2-5.4); Red Cell Distribution Width 15.2 % (11.5-14.5); White Blood Count 7.5 K/mm3 (4.5-10.0)
[2024-05-30 07:38] LABS: Alanine Aminotransferase 18 U/L (6-35); Albumin Level 3.7 g/dL (3.5-5.1); Alkaline Phosphatase 85 U/L (38-126); Anion Gap 8 mmol/L (4-12); Aspartate Amino Transferase 18 U/L (14-36); Bilirubin,Total 0.5 mg/dL (0.2-1.3); Blood Urea Nitrogen 17 mg/dL (7-17); Calcium 8.8 mg/dL (8.4-10.2); Carbon Dioxide 32 mmol/L (22-30); Chloride 98 mmol/L (98-107); Estimated CRCL calculation 118 ml/min; Estimated Glomerular Filt Rate > 60; Glucose 119 mg/dL (65-110); Potassium 4.3 mmol/L (3.4-5.0); Sodium 138 mmol/L (137-145)
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
== END 2024-05-30 09:03 | disposition home or self-care (01) ==
PROVIDERS: Emergency Provider Emergency Medicine; PCP Family Medicine
DX: R00.2 Palpitations (principal); J45.909 Unspecified asthma, uncomplicated; I50.9 Heart failure, unspecified; Z86.711 Personal history of pulmonary embolism; Z87.891 Personal history of nicotine dependence
CPT/HCPCS: 36415; 71045; 80053; 83735; 84443; 85025; 93005; 99283

== ENCOUNTER 2024-06-26 10:41 | Outpatient (CLI) | payer OTHER, SELFPAY | END 2024-06-26 10:42 | disposition home or self-care (01) | LOC: ANHCARD 10:43 | PROVIDERS: PCP Family Medicine; Visit Provider Nurse Practitioner Family | DX: R00.2 Palpitations (principal) | CPT/HCPCS: 93225; 93226 ==

== ENCOUNTER 2024-07-09 10:29 | Outpatient (CLI) | payer OTHER, SELFPAY ==
--- NOTE | 2024-07-17 15:34 | WPDHOLTEREM ---
Holter/Event Monitor Holter/Event Monitor Date of procedure: 07/09/24 Holter/Event Procedure: 48 Hr Holter Monitor Indications: Palpitations Conclusion: 1. 48 hour holter monitor on 07/09/24. 2. Underlying rhythm is sinus rhythm. HR range 51-121 bpm; average HR 71 bpm. 3. There are 20 premature supraventricular complexes, 1 supraventricular couplet and 1 supraventricular triplet. No supraventricular tachycardia. 4. There are 6 premature ventricular complexes. No ventricular tachycardia. 5. No sinoatrial or atrioventricular blocks. No significant pauses greater than 2 seconds. 6. No symptoms available for correlation.
== END 2024-07-09 10:30 | disposition home or self-care (01) ==
LOC: ANHCARD 10:34
PROVIDERS: PCP Family Medicine; Visit Provider Nurse Practitioner Family
DX: R00.2 Palpitations (principal); I50.9 Heart failure, unspecified; I51.89 Other ill-defined heart diseases
CPT/HCPCS: 93225; 93226

== ENCOUNTER 2025-03-28 16:22 | Outpatient (CLI) | payer OTHER, SELFPAY ==
--- OUTSIDE RECORDS SUMMARY | 2025-03-28 16:24 | XMS_ITS | Clinical Summary ---
Author Organization [facility] Address [address] [place] [address] Care Team Providers Care Appraiser Timber Name Role Phone Unavailable Primary Care Provider Unavailabl e Immunizations Immunization Administration Dates Next Due PFIZER COVID-19 (ORIGINAL FO RMULATION, PURPLE CAP) mRNA, LNP-S, PF, 30 MCG/0.3 ML DOSE 12/08/2020,11/17/2020 Social History Tobacco Use Types Packs/Day Years Used Date Smoking Tobacco: Never Assessed Comments Unknown Sex and Gender Information Value Date Recorded Sex Assigned at Not on file Legal Sex Female 7:49 PM CDT Gender Identity Not on file Sexual Orientation Not on file Plan of Treatment Health Maintenance Due Date Last Done Comments Cervical Cancer Screening Pa p Smear (Age 30 to 64) Every 3 Years 1965 Colorectal Cancer Screening Colonoscopy (10 Years) 1965 Annual Physical 1969 Hepatitis C 1984 DTaP, Tdap and Td Vaccines ( 1 - Tdap) 1985 Hepatitis B Vaccines (1 of 3 - 19+ 3-dose series) 1985 Cervical Cancer Screening Pa p with HPV Testing (Age 30 to 64) Every 5 Years 1996 Cervical Cancer Screening wi th HPV 1996 Mammogram Screening 2006 Pneumococcal Vaccine: 50+ Years (1 of 1 - PCV) 2016 Zoster Vaccines (1 of 2) 2016 COVID-19 Vaccine ( - 2023-2 5 season) 2024 12/08/2020, 11/17/2020 Meningococcal B Vaccine Aged Out No l onger eligible based on patient's age to complete this topic Meningococcal Vaccine Aged Out No clarisse anton eligible based on patient's age to complete this topic RSV Immunizations Under 20 Months Aged Out No longer eligible b ased on patient's age to complete this topic
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
--- OUTSIDE RECORDS SUMMARY | 2025-03-28 16:26 | XMS_ITS | Continuity of Care Document ---
Author Organization [facility] Address [address] [place] [address] [address] [place] [address] Phone Care Team Providers Care Farm Loan Representative Name Role Phone Andrea PT, THERONT, Betina Unavailable Unavailabl e Procedures Procedure Date Screening Advance Directives Directive Yes / No Effective Date File Name No Information Encounters Encounter Description Practice Location Reason(s) For Visit Diagnoses Date Provider Providers Copied on Encounter [facility], [address], [place], [place], [id number], [place] tel:[phone] [place] No Information Andrea Moffett. . Referring Provider: Physician Screen. Family History Family Member Type Diagnosis Age At Onset No Information Payers Payer name Insurance type Covered constitution party ID Authoriza tion(s) No Information Social History Type Description Quantity Date Captured Comments Sex Female Smoking Status No Information Chief Complaint And Reason For Visit No Information Reason For Referral Reason For Referral No Information History Of Present Illness Encounter Date Complaint History Of Prese nt Illness No Information Functional Status Date Functional Assessmen t No Information Instructions Date Instruction Additional Infor mation No Information Assessments Type Assessment Date No Information Patient Care Teams Name Effective Dates (start - stop) Status Members No Information
[2025-03-28 16:41] LABS: Hematocrit 42.3 % (37.0-47.0); Hemoglobin 13.7 g/dL (12.0-15.0); Mean Corpuscular HGB Conc 32.4 g/dl (32-36); Mean Corpuscular Hemoglobin 30.1 pg (26-34); Mean Corpuscular Volume 93.0 fl (80-100); Platelet Count Result 236 k/mm3 (150-375); Red Blood Count 4.55 M/mm3 (4.2-5.4); White Blood Count 8.7 K/mm3 (4.5-10.0)
[2025-03-28 16:53] LABS: Iron 69 ug/dL (37-170)
[2025-03-28 16:55] LABS: Anion Gap 9 mmol/L (4-12); Blood Urea Nitrogen 17 mg/dL (7-17); Calcium 9.7 mg/dL (8.4-10.2); Carbon Dioxide 28 mmol/L (22-30); Chloride 102 mmol/L (98-107); Estimated Glomerular Filt Rate > 60; Glucose 104 mg/dL (65-110); Potassium 3.7 mmol/L (3.4-5.0); Sodium 139 mmol/L (137-145)
[2025-03-28 17:02] LABS: Percent Iron Saturation 24 % (20-50)
[2025-03-28 17:26] LABS: Thyroid Stimulating Hormone 2.130 uIU/mL (0.465-4.680)
[2025-03-28 17:30] LABS: Ferritin 201.00 ng/mL (11.1-264)
[2025-03-28 17:45] LABS: Vitamin B12 235.0 pg/mL (239-931)
[2025-04-01 14:39] LABS: Red Blood Cell Folate 453 ng/mL RBC (>280)
== END 2025-03-28 16:23 | disposition home or self-care (01) ==
PROVIDERS: PCP Family Medicine; Visit Provider Family Medicine
DX: R71.8 Other abnormality of red blood cells (principal); R00.0 Tachycardia, unspecified
CPT/HCPCS: 36415; 80048; 82607; 82728; 82747; 83540; 83550; 84443; 85027

== ENCOUNTER 2025-04-04 15:46 | Outpatient (CLI) | payer OTHER, SELFPAY ==
--- OUTSIDE RECORDS SUMMARY | 2025-04-04 15:49 | XMS_ITS | Clinical Summary ---
Author Organization [facility] Address [address] [facility] [place] [address] Phone Care Team Providers Care Exterminator Name Role Phone Thomas Ann MD Primary Care Provider [phone] Allergies Active Allergy Reactions Criticality Noted Date [...] ions:Morbid obesity with BMI of 50.0-59.9, adult (CMS/[facility]) Take 5 mL (5 mg) by mouth every 4 hours as needed for Break-Through Pain. Max Daily Amount: 30 mg 210 mL 11/13/2024 6:10 PM SENIOR INFRASTRUCTURE ENGINEER 5 Active enoxaparin (LOVENOX) 30 mg/0.3 mL injection Inject 0.3 mL (30 mg) by subcutaneous injection every 12 hours. 20 Each 11/13/2024 6:10 PM SENIOR INFRASTRUCTURE ENGINEER 5 Active famotidine (PEPCID) 20 mg tablet Take 1 Tablet (20 mg) by mouth 2 times daily. 60 Tablet 2 11/13/2024 6:10 PM SENIOR INFRASTRUCTURE ENGINEER 5 Active ondansetron (ZOFRAN ODT) 4 mg Tablet, Rapid Dissolve Dissolve 1 Tablet (4 mg) on top of tongue then swallow with saliva every 8 hours as needed for Nausea or Vomiting 28 Tablet 1 11/13/2024 6:10 PM SENIOR INFRASTRUCTURE ENGINEER 5 Active Active Problems Problem Noted Date [...] Encounters Date Type Department Care Team Description 04/02/2025 External Device Data STL ABSTRACTION Provider, Abstract 03/13/2025 External Device Data STL ABSTRACTION Provider, Abstract 02/26/2025 External Device Data STL ABSTRACTION Provider, Abstract 02/26/2025 External Device Data STL ABSTRACTION Provider, Abstract 02/25/2025 2:49 PM CDT - 02/25/2025 11:59 PM CDT Hospital Encounter [facility] Non Invasive Cardiology [address] [place] [phone] Cristobal Gutierrez MD Discharge Disposition: Home or Self Care 02/25/2025 2:00 PM CDT Office Visit [facility] Heart and Vascular At [address] [place] [address] Cristobal Gutierrez MD Heart palpitations (Primary Dx); [...] Sex Assigned at Female 10/07/2024 6:38 PM SENIOR INFRASTRUCTURE ENGINEER Legal Sex Female 9:18 AM CDT Gender Identity Female 10/07/2024 6:38 PM SENIOR INFRASTRUCTURE ENGINEER Sexual Orientation Straight 10/07/2024 6: 38 PM SENIOR INFRASTRUCTURE ENGINEER Last Filed Vital Signs Vital Sign Reading Time Taken Comments Blood Pressure 124/62 02/25/2025 2:06 PM CDT Pulse 80 02/25/2025 2:06 PM CDT Temperature 36.7 C (98 F) 11/13/2024 8:42 AM SENIOR INFRASTRUCTURE ENGINEER Respiratory Rate 18 11/13/2024 8:42 AM SENIOR INFRASTRUCTURE ENGINEER Oxygen Saturation 95% 02/25/2025 2:06 PM CDT Inhaled Oxygen Concentration - - Weight 111.1 kg (245 lb) 02/25/2025 2:06 PM CDT Height 157.5 cm (5' 2) 02/25/2025 2:06 PM CDT Body Mass Index 44.81 02/25/2025 2:06 PM CDT Plan of Treatment Upcoming Encounters Date Type Department Care Team (Late st Contact Info) Description 05/28/2025 9:30 AM CDT Office Visit [facility] Heart and [facility] At [facility] [address] [facility] [place] [address] Cristobal Gutierrez MD [address] [place] [address] Health Maintenance Due Date Last Done Comments [...] 2016 COVID-19 Vaccine ( season) 2024, 11/17/2020 Preventative Visit- Commercial 09/26/2024 INFLUENZA VACCINE (#1) 2025 COLORECTAL SCREENING 06/08/2034 06/08/2024, 06/08/20 24 Colorectal Cancer Screening 06/08/2034 Medical Devices Implanted Type Area Sash Finisher Device Identifier Shelf Expiration Date Model / Serial / Lot Seamguard Endopath 60 [id number] - [id number] Implanted:Qt y: 4 on 11/12/2024 by Rosemary Coates MD at [facility] N/A: Abdomen [employer] [id number] 07/04/2027 [id number] / / [id number] Seamguard Endopath 60 [id number] - [id number] Implanted:Qt y: 1 on 11/12/2024 by Rosemary Coates MD at [facility] N/A: Abdomen [employer] [id number] 06/10/2027 [id number] / / [id number] Senior Infrastructure Engineer Ligamax Endo Multi Clip 5mm El5ml - [id number] Implanted:Qt y: 1 on 11/12/2024 by Rosemary Coates MD at [facility] N/A: Abdomen J&J- [employer] 06/25/2029 [id number] / / [id number] Procedures Procedure Name Priority Date/Time Associated Diagnosis Comments MOBILE CARDIAC OUTPATIENT TELEMETRY Routine 03/10/2025 5:00 AM CDT Heart palpitations COLONOSCOPY REPORT 06/08/2024 10 :02 AM CDT from Last 3 Months or Most Recently Relevant to Health Maintenance Results * MOBILE CARDIAC OUTPATIENT TELEMETRY (03/10/2025 5:00 AM CDT) 03/10/2025 5:00 AM CDT Narrative INTERFACE SYSTEM - 03/17/2025 9:36 PM CDT [place] [address] [place] [address] Test Date: 2025-03-10 Pat Name: PRISCILLA CALDWELL Department: Room: Gender: Female Volunteer Services Assistant: : 1965 Requested By: CRISTOBAL John Order Number: [id number] Connie MD: Med Prado Interpretive Statements Patient [...] Procedure Note Med Prado MD - 03/17/2025 [facility] [address] [facility], [place] [address] Test Date: 2025-03-10 Pat Name: PRISCILLA CALDWELL Department: Room: Gender: Female Volunteer Services Assistant: : 1965 Requested By: CRISTOBAL John Order Number: [id number] Reading MD: Med Prado Interpretive Statements Patient [...] Coates MD - 06/08/2024 10:02 AM CDT [facility] Endoscopy Patient Name: Priscilla Caldwell Procedure Date: [...] diet indefinitely. Procedure Code(s): --- Professional --- 12694, Colonoscopy, flexible; diagnostic, including collection of specimen(s) by brushing or washing, when performed (separate procedure) CPT copyright 2020 [employer]. All rights reserved. The codes documented in this report are preliminary and upon photocopying equipment mechanic review may be revised to meet current compliance requirements. Rosemary Coates MD 06/08/2024 10:02:25 AM Number of Addenda: [phone] [address], [place] [address] Rosemary Coates MD GI PROCEDURE ORDERABLES Fi nal Result from Last 3 Months or Most Recently Relevant to Health Maintenance Insurance [facility] [id number] [facility] BENEFIT PLANS RX [facility] [employer] RX [employer] RX Member Subscriber Plan / Payer (Ef fective 2024-Present) Name:Priscilla Caldwell Relation to Subscriber:Self Name:Priscilla Caldwell Subscriber ID:Not on file Payer ID:Not on file Group ID:[id number] Type:RX Commercial Address: [place] RX GUO PLANS (INTERNAL) [facility] Internal Plans Advance Directives For more information, please contact: [phone] * Full Code (Latest Code Status on File) Date Activated Date Inactivated Comments 11/12/2024 4:47 PM 11/13/2024 8:21 PM * Full Code Date Activated Date Inactivated Comments 11/12/2024 7:32 AM 11/12/2024 4:47 PM Care Teams Exterminator Relationship Specialty Start Date End Date Thomas Ann MD [address] [place] [address] PCP - General Family Practice 03/16/18
--- OUTSIDE RECORDS SUMMARY | 2025-04-04 15:49 | XMS_ITS | Clinical Summary ---
Author Organization [facility] Address [address] [place] [address] Care Team Providers Care Actuarial Associate Name Role Phone Unavailable Primary Care Provider [...]
[2025-04-04 16:34] LABS: Magnesium 2.2 mg/dL (1.6-2.3)
== END 2025-04-04 15:47 | disposition home or self-care (01) ==
PROVIDERS: PCP Family Medicine
DX: R00.2 Palpitations (principal); I50.9 Heart failure, unspecified; R00.0 Tachycardia, unspecified
CPT/HCPCS: 36415; 83735; 84100